=== PATIENT | male | born 1955 | race Caucasian/White ===

== ENCOUNTER 2021-12-27 04:52 | Emergency (ER) | payer MEDICARE, OTHER ==
[~2021-12-27] VITALS: Ht 177.8 cm; Wt 88.5 kg
[2021-12-27] MEDS ORDERED: EUTHYROX88 MCG PO (05:08)
[2021-12-27] MEDS ORDERED: TAMSULOSIN HCL0.4 MG PO (05:08)
[2021-12-27] MEDS ORDERED: METFORMIN HCL500 M1 PO (05:08)
[2021-12-27] MEDS ORDERED: VALSARTAN-HCTZ1 EAC3 PO (05:08)
[2021-12-27] MEDS ORDERED: HYDROCODON-ACE1 EA10 PO (07:20)
[2021-12-27] MEDS ORDERED: ONDANSETRON ODT8 MG PO (07:20)
[2021-12-27] MEDS ORDERED: CEFDINIR300 MG PO (07:20)
== END 2021-12-27 08:30 | disposition home or self-care (01) ==
LOC: ED 04:52
DX: R31.9 Hematuria, unspecified (principal); M54.50 Low back pain, unspecified; N12 Tubulo-interstitial nephritis, not specified as acute or chronic; E11.9 Type 2 diabetes mellitus without complications; Z79.84 Long term (current) use of oral hypoglycemic drugs; Z79.899 Other long term (current) drug therapy
CPT/HCPCS: 36415; 74176; 80048; 81001; 85025; 87088; 96361; 96365; 96375; 99284-25; A9270; J0696; J1170; J1885; J2270; J2405; J7030

== ENCOUNTER 2022-04-18 07:30 | Emergency (ER) | payer MEDICARE, OTHER ==
[~2022-04-18] VITALS: Ht 177.8 cm; Wt 90.7 kg
[~2022-04-18 07:30] MED LIST: CEFDINIR300 MG PO; EUTHYROX88 MCG PO; HYDROCODON-ACE1 EA10 PO; METFORMIN HCL500 M1 PO; ONDANSETRON ODT8 MG PO; TAMSULOSIN HCL0.4 MG PO; VALSARTAN-HCTZ1 EAC3 PO
[2022-04-18] MEDS ORDERED: MELOXICAM15 MG PO (07:46)
--- NOTE | 2022-04-18 14:30 | EKG ---
[facility] [address] [facility] [place] [address] Signed Normal sinus rhythm Early repolarization Normal ECG No previous ECGs available Confirmed by MEKHI SMALL MD ([id number] on 04/18/2022 2:29:42 PM Electronically Signed By: MEKHI SMALL MD 04/18/22 1430 PATIENT NAME: HERIBERTO HARDIN Electrocardiogram DATE OF : 55 PHYSICIAN: MEKHI SMALL MD REPORT #: [id number] REPORT IS CONFIDENTIAL AND NOT TO BE RELEASED WITHOUT AUTHORIZATION
== END 2022-04-18 10:58 | disposition home or self-care (01) ==
LOC: ED 07:30
DX: I31.9 Disease of pericardium, unspecified (principal); Z20.822 Contact with and (suspected) exposure to COVID-19; E11.9 Type 2 diabetes mellitus without complications; E78.5 Hyperlipidemia, unspecified; Z79.899 Other long term (current) drug therapy; Z79.84 Long term (current) use of oral hypoglycemic drugs
CPT/HCPCS: 36415; 71045; 80053; 83735; 84484; 85025; 85379; 85651; 86140; 93005; 93010; 96374; 99285-25; A9270; C9803; J1885; U0003